=== PATIENT | male | born 1990 | race Caucasian/White ===

== ENCOUNTER 2017-07-18 00:08 | Emergency (ER) | payer OTHER ==
[2017-07-18] MEDS: ACETAMINOPHEN 325 MG TAB PO (03:42)
[2017-07-18] MEDS: KETOROLAC 30 MG INJ IM (03:43)
== END 2017-07-18 05:00 | disposition home or self-care (01) ==
LOC: FTE 00:08
DX: S16.1XXA Strain of muscle, fascia and tendon at neck level, initial encounter (principal); V43.52XA Car driver injured in collision with other type car in traffic accident, initial encounter
CPT/HCPCS: 96372; 99284-25; J1885